=== PATIENT | female | born 1995 | race African-American/Black ===

== ENCOUNTER 2016-10-09 13:54 | Emergency (ER) | payer OTHER ==
[~2016-10-09] VITALS: Ht 170.2 cm; Wt 76.0 kg
[~2016-10-09 13:54] MED LIST: IBUP800T23 PO; PENI500T PO
[2016-10-09 13:55] VITALS: BP 135/79; PULSE 106; RESP 18; TEMP 98.5; O2SAT 99
[2016-10-09] MEDS ORDERED: IBUPROFEN 800 MG TAB PO ONE (14:45)
--- NOTE | 2016-10-09 14:47 | PD ---
HPI Chief Complaint: ENT Complaint Time Seen by Provider: 14:42 Travel History International Travel<30 days: No Contact w/Intl Traveler<30days: No Traveled to known affect area: No History of Present Illness HPI 20-year-old female presents to the emergency Department with complaint of sore throat, headache, nasal congestion since yesterday. Reports occasional cough. Denies ear pain. Denies "difficulty swallowing, and usual drooling. Denies fever, chills. Reports body aches. Did not receive the influenza vaccine. Has not taken any medications or tried any treatments to alleviate her symptoms. No known aggravating or relieving factors. No one else sick with similar symptoms. Allergies to azithromycin. Denies significant past medical history. No other Modifying factors or associated signs and symptoms. PFSH Past Medical History Diminished Hearing: No ?: Not LMP: 08/23/2016 Social History Alcohol Use: No Tobacco Use: No Substance Use: No Allergies-Medications (Allergen,Severity, Reaction): Coded Allergies: Zithromax (Verified Allergy, Unknown, 10/09/16) Reported Meds & Prescriptions Reported Meds & Active Scripts Active Review of Systems Except as stated in HPI: all other systems reviewed are Neg Physical Exam Narrative GENERAL: Well-nourished, well-developed female patient, in no acute distress; afebrile, nontoxic-appearing SKIN: Warm and dry. No rash. HEAD: Atraumatic. Normocephalic. EYES: Pupils equal and round at 3 mm with brisk reaction. No scleral icterus. No injection or drainage. PERRLA. ENT: Mucosa pink and moist. Oropharynx with erythema; without edema or exudates. No uvular edema. No uvular, palatal, or tonsillar deviation. Airway patent. EARS: Bilateral pinnae and external canals appear within normal limits. Bilateral tympanic membranes without erythema, dullness or perforation. NECK: Trachea midline. No lymphadenopathy. CARDIOVASCULAR: Regular rate and rhythm. No murmur appreciated. RESPIRATORY: No accessory muscle use. Clear to auscultation. Breath sounds equal bilaterally. GASTROINTESTINAL: Abdomen soft, non-tender, nondistended. Hepatic and splenic margins not palpable. Bowel sounds are active 4 quadrants. MUSCULOSKELETAL: No obvious deformities. No clubbing. No cyanosis. No edema. NEUROLOGICAL: Awake and alert. Oriented 3. No obvious cranial nerve deficits. Motor grossly within normal limits. Normal speech. Moves all extremities. 5/5 strength to all extremities. PSYCHIATRIC: Appropriate mood and affect; insight and judgment normal. Data Data Last Documented VS Vital Signs Date Time Temp Pulse Resp B/P Pulse Ox O2 Delivery O2 Flow Rate FiO2 10/09/16 13:55 98.5 106 18 135/79 99 Room Air Orders Influenzae A/B Antigen (10/09/16 14:41) Group A Rapid Strep Screen (10/09/16 14:41) Ibuprofen (Motrin) (10/09/16 14:45) Strep Culture (Group A) (10/09/16 14:57) MDM Medical Decision Making Medical Screen Exam Complete: Yes Emergency Medical Condition: Yes Medical Record Reviewed: Yes Differential Diagnosis Viral illness, influenza, strep pharyngitis, viral pharyngitis Narrative Course 20-year-old female with sore throat and cold symptoms since yesterday. Patient is afebrile nontoxic appearing. Denies a lump in throat, difficulty swallowing , unusual drooling. Ibuprofen administered in the ER. Rapid strep and influenza ordered. 1555: Influenza and rapid strep negative. Discussed viral illness and symptomatic management. Ibuprofen, Magic mouthwash, Nasonex nasal spray prescribed for home. Patient verbalizes understanding and agreement with treatment plan. Patient is medically cleared and stable for discharge. Discussed reasons to return to the emergency department. Instructed patient to follow up with primary care provider. Patient agrees with treatment plan. The patients vital signs are stable and the patient is stable for outpatient follow- up and treatment. Patient discharged home, stable and in no acute distress. Diagnosis Primary Impression: Viral illness Referrals: Primary Care Physician Patient Instructions: Cold Symptoms (ED), General Instructions, Safe Use of Cough and Cold Medicines (ED) Departure Forms: Tests/Procedures, Work Release Enter return to work date: Oct 11, 2016 Additional Instructions: Ibuprofen or Tylenol as directed and as needed for pain/fever [id number] decongestants or antihistamines as directed and as needed for symptom management Drink plenty of fluids to prevent dehydration Use hot air humidifier for symptom management Turn off ceiling fans and sleep with head of bed elevated Follow-up with your primary care provider Return to the emergency department immediately with worsening of symptoms Med/Other Pt SpecificInfo: Prescription(s) given Scripts Uphbnjbottairrn-Jqzpqngxq-Urr-Alum-Simeth Liq (Magic Mouthwash Pediatric/Adult Liq)60 Ml Susp5 Ml SWISH-SPIT Q3HR PRN (SORE THROAT) #60 ML Ref 0 Each 5mL contains: Diphenydramine 4.5mg, Viscous Lidocaine 2% 10mg, Maalox Advanced Regular Strength 2.7ml Prov:Gale Simons 10/09/16 Mometasone Nasal [place] (Nasonex Nasal [place]ress)50 Mcg/Act Naspr2 Cypress EACH NARE DAILY PRN (NASAL CONGESTION) #1 BOTTLE Ref 0 Prov:Gale Simons 10/09/16 Ibuprofen 800 Mg [id number] Mg PO Q6HR PRN (PAIN) #30 TAB Ref 0 Prov:Gale Simons 10/09/16 Disposition: 01 DISCHARGE HOME Condition: Stable Gale Simons Oct 09, 2016 14:46
[2016-10-09] MEDS ORDERED: IBUP800T23 PO (15:57)
[2016-10-09] MEDS ORDERED: MAGICPED SWISH-SPIT (15:57)
[2016-10-09] MEDS ORDERED: MOME17I EACH NARE (15:57)
== END 2016-10-09 16:57 | disposition home or self-care (01) ==
LOC: NEPB 13:54
DX: B34.9 Viral infection, unspecified (principal)
CPT/HCPCS: 87081; 87804; 87880; 99283